=== PATIENT | male | born 1970 | race Caucasian/White ===

== ENCOUNTER 2024-01-30 08:25 | Outpatient (CLI) | payer OTHER, SELFPAY | END 2024-01-30 08:26 | disposition home or self-care (01) | LOC: ANHGOSHLAB 08:27 | PROVIDERS: PCP Nurse Practitioner Family; Visit Provider Nurse Practitioner Family | DX: Z00.00 Encounter for general adult medical examination without abnormal findings (principal); E03.9 Hypothyroidism, unspecified | CPT/HCPCS: 36415; 84443 ==

== ENCOUNTER 2024-02-09 16:04 | Outpatient (CLI) | payer OTHER, SELFPAY ==
[2024-02-09 17:07] LABS: Alanine Aminotransferase 63 U/L (6-50); Albumin Level 4.2 g/dL (3.5-5.1); Alkaline Phosphatase 72 U/L (38-126); Anion Gap 3 mmol/L (8-16); Aspartate Amino Transferase 31 U/L (17-59); Bilirubin,Total 0.7 mg/dL (0.2-1.3); Blood Urea Nitrogen 15 mg/dL (9-20); Calcium 9.5 mg/dL (8.4-10.2); Carbon Dioxide 32 mmol/L (22-30); Chloride 102 mmol/L (98-107); Cholesterol 199 mg/dL (0-200); Estimated Glomerular Filt Rate > 60; Glucose 111 mg/dL (65-110); HDL Direct 35 mg/dL; Potassium 4.6 mmol/L (3.4-5.0); Sodium 137 mmol/L (137-145); Triglycerides 202 mg/dL (<150)
[2024-02-09 17:18] LABS: LDL Cholesterol Direct 150 mg/dL
[2024-02-10 16:19] LABS: Hemoglobin A1C 7.8 % (<5.7)
[2024-02-12 07:31] LABS: Vitamin D 1,25 (OH)2 Total 22 pg/mL (18-72); Vitamin D2 1,25 (OH)2 <8 pg/mL; Vitamin D3 1,25 (OH)2 22 pg/mL
[2024-02-13 16:33] LABS: PSA, Total 0.8 ng/mL (<=4.0)
[2024-02-15 10:39] LABS: Testosterone Free 60.7 pg/mL (35.0-155.0); Testosterone Total 397 ng/dL (250-1100)
== END 2024-02-09 16:05 | disposition home or self-care (01) ==
LOC: ANHGOSHLAB 16:05
PROVIDERS: PCP Family Medicine; Visit Provider Nurse Practitioner Family
DX: Z12.5 Encounter for screening for malignant neoplasm of prostate (principal); R63.5 Abnormal weight gain; E11.9 Type 2 diabetes mellitus without complications; I10 Essential (primary) hypertension; E55.9 Vitamin D deficiency, unspecified; R79.89 Other specified abnormal findings of blood chemistry
CPT/HCPCS: 36415; 80053; 80061; 82652; 83036; 84153; 84154; 84402; 84403

== ENCOUNTER 2025-02-25 15:07 | Outpatient (CLI) | payer OTHER, SELFPAY ==
[2025-02-25 16:09] LABS: Alanine Aminotransferase 45 U/L (6-50); Albumin Level 4.1 g/dL (3.5-5.1); Alkaline Phosphatase 92 U/L (38-126); Anion Gap 4 mmol/L (4-12); Aspartate Amino Transferase 24 U/L (17-59); Bilirubin,Total 0.6 mg/dL (0.2-1.3); Blood Urea Nitrogen 14 mg/dL (9-20); Calcium 9.1 mg/dL (8.4-10.2); Carbon Dioxide 33 mmol/L (22-30); Chloride 100 mmol/L (98-107); Cholesterol 270 mg/dL (0-200); Estimated Glomerular Filt Rate > 60; Glucose 299 mg/dL (65-110); HDL Direct 40 mg/dL; Potassium 4.4 mmol/L (3.4-5.0); Sodium 137 mmol/L (137-145); Triglycerides 390 mg/dL (<150)
[2025-02-25 16:19] LABS: Free T4 Free Thyroxine 0.94 ng/dL (0.78-2.19); Vitamin D 25 Hydroxy 17.4 ng/mL
--- OUTSIDE RECORDS SUMMARY | 2025-02-25 16:33 | XMS_ITS | Encounter Summary ---
Author Organization [facility] Address [address] [place] [address] Phone Care Team Providers Care Supply Coordinator Name Role Phone Naila Pop APRN, KATERIN Primary Care Provider Provider, None Primary Care Provider Unavailabl e Reason for Visit * Reason Comments Medication Refill Encounter Details Date Type Department Care Team (Late st Contact Info) Description 12/30/2022 Refill [facility] - Primary Care - [place] [address] [place] [id number] Naila Pop APRN, PERIOPERATIVE TECH [address] [place] [address] Medication Refill Social History Tobacco Use Types Packs/Day Years Used Date Smoking Tobacco: Every Day Cigarettes 1.5 37 Started: 02/12/1988 Smokeless Tobacco: Never Alcohol Use Standard Drinks/Week Comments No 0 (1 standard drink = 0.6 oz pur e alcohol) no drinks for 1 year. PHQ-2 Answer Date Recorded Total Score - Questions 1-9 0 11/20 Sexually Active Control Partners Comments Not Currently Female Sex and Gender Information Value Date Recorded Sex Assigned at Not on file Legal Sex Male 8:05 PM CDT Gender Identity Not on file Sexual Orientation Not on file documented as of this encounter Miscellaneous Notes * Telephone Encounter - Dalia Villarreal RN - 12/30/2022 7:40 AM TURN SUPERVISOR Medication failed the protocol, provider to review and approve the medication order if appropriate. Requested Prescriptions Pending Prescriptions Disp Refills metFORMIN (GLUCOPHAGE) 1000 MG Tablet [Pharmacy Med Name: METFORMIN HCL 1,000 MG TABLET] 180 Tablet0 Sig: TAKE 1 TABLET BY MOUTH 2 TIMES DAILY WITH MEALS Biguanides Protocol Passed - 12/30/2022 12:02 AM Passed - Visit with relevant provider in past 6 months or upcoming 90 days Recent Visits Date Type Provider Dept 10/04/22 Office Visit Naila Pop APRN, PERIOPERATIVE TECH [facility] [place] [facility] Showing recent visits within past 182 days and meeting all other requirements Future Appointments No visits were found meeting these conditions. Showing future appointments within next 90 days and meeting all other requirements Passed - HgA1C on record in past 6 months HGB-A1C Date Value Ref Range Status 10/04/2022 11.2 (H) 4.0 - 6.0 % Final Passed - GFR on record in past 6 months GFR, EST. NONAFRICAN Date Value Ref Range Status 10/04/2022 >60 >=60 Final buPROPion (WELLBUTRIN) 150 MG XL tablet [Pharmacy Med Name: BUPROPION HCL XL 150 MG TABLET] 90 Tablet 0 Sig: TAKE 1 TABLET BY MOUTH EVERY DAY IN THE MORNING Bupropion (6 Month Refill Only) Protocol Failed - 12/30/2022 12:02 AM Failed - Patient has established therapy with Bupropion for at least 6 months Passed - Visit with relevant provider in past 6 months or upcoming 90 days Recent Visits Date Type Provider Dept 10/04/22 Office Visit Naila Pop APRN, KATERIN [facility] [place] [facility] Showing recent visits within past 182 days and meeting all other requirements Future Appointments No visits were found meeting these conditions. Showing future appointments within next 90 days and meeting all other requirements Passed - Has an encounter in the past 6 months with a depression or anxiety visit diagnosis SUPERVISOR documented in this encounter Plan of Treatment Not on file documented as of this encounter Visit Diagnoses Not on filedocumented in this encounter Additional Health Concerns Infection Onset Date Last Indicated Resolved Time COVID - 19 04/07/2023 04/07/2023 04/17/2023 12:1 6 AM CDT Assessment Noted Time PHQ-9 Depression Total Score: 0 08/24/20 18 9:00 AM CDT documented as of this encounter Care Teams Supply Coordinator Relationship Specialty Start Date End Date Naila Pop, AERIAL PHOTOGRAPH INTERPRETER, PERIOPERATIVE TECH [address] [place] [address] PCP - General Advanced Practice Nurse 08/24/18 Provider, None [place] PCP - General 05/10/24 documented as of this encounter
--- OUTSIDE RECORDS SUMMARY | 2025-02-25 16:33 | XMS_ITS | Clinical Summary ---
Author Organization [facility] Address [address] [place] [address] Phone Care Team Providers Care Vegetable Cutter Name Role Phone Provider, None Primary Care Provider Unavailabl e Allergies No known active allergies Medications Syringe/Needle, Disp, (SYRINGE 3CC/44AW1-5/4 ) 21G X 1-4 3 ML Misc 1 Units by Does not apply route every 14 days. 2 Each 1 2 Active Additional Information Patient not taking.Reported on 05/10/2024 glimepiride (AMARYL) 4 MG Tablet Take 1 Tablet by mouth every morning. 90 Tablet 3 2 Active Additional Information Patient not taking.Reported on 05/10/2024 metFORMIN (GLUCOPHAGE) 1000 MG Tablet TAKE 1 TABLET BY MOUTH 2 TIMES DAILY WITH MEALS 180 Tablet 3 3 Active Additional Information Patient not taking.Reported on 05/10/2024 buPROPion (WELLBUTRIN) 150 MG XL tablet TAKE 1 TABLET BY MOUTH EVERY DAY IN THE MORNING 90 Tablet 3 3 Active Additional Information Patient not taking.Reported on 05/10/2024 levothyroxine (SYNTHROID) 200 MCG Tablet Take 200 mcg by mouth daily. Active simvastatin (ZOCOR) 20 MG Tablet Take 20 mg by mouth every evening. Active Vitamin D3 1.25 MG (81669 UT) Capsule TAKE 1 CAPSULE BY MOUTH ONCE WEEKLY 4 Active Ozempic, 1 MG/DOSE, 4 MG/3ML Solution Pen-injector INJECT 1MG UNDER THE SKIN ONCE WEEKLY 4 Active ofloxacin (OCUFLOX) 0.3 % Solution Place 1 Drop in affected eye(s) 4 times daily. 5 mL 4 Active Active Problems Problem Noted Date Diagnosed Date Cellulitis of right lower extremity 04/07/2023 HTN (hypertension) 04/07/2023 Chronic obstructive pulmonar y disease with acute exacerbation 04/07/2023 Acute respiratory failure with hypoxia and hyper capnia 04/07/2023 Tobacco dependence syndrome 10/11/2021 Other testicular hypofunction 02/26/2020 Incisional hernia, without obstruction or gangre ne 02/12/2020 Class 3 severe obesity due t o excess calories with serious comorbidity and body mass index (BMI) of 45.0 to 49.9 in adult 09/17/2019 Thrush, oral 09/17/2019 Localized edema 09/03/2019 Type 2 diabetes mellitus wit hout complication, without long-term current use of insulin 08/29/2018 Hypothyroidism 08/29/2018 Elevated blood pressure reading 08/29/2018 Vitamin D deficiency 08/29/2018 Acute deep vein thrombosis ( DVT) of proximal vein of right lower extremity 08/29/2018 Mixed hyperlipidemia 08/29/2018 Immunizations Immunization Administration Dates Next Due Pneumococcal Vaccine Adult - 23 Valent 8 Family History Medical History Relation Name Comments No Known Problems Daughter 1 Diabetes Daughter 2 youngest Seizures Daughter 2 youngest Congestive Heart Failure Father Diabetes Father Heart Disease Father Hypertension Father Seizures Father Stroke Half-Brother 1 Diabetes Mother Neuropathy Mother Relation Name Status Comments Daughter 1 Alive Daughter 2 youngest Alive Father Half-Brother 1 Alive Half-Brother 2 Alive Mother Alive Social History Tobacco Use Types Packs/Day Years Used Date Smoking Tobacco: Every Day Cigarettes 1.5 37 Started: 02/12/1988 Smokeless Tobacco: Never Tobacco Cessation:Ready to Q uit: No; Counseling Given: No Alcohol Use Standard Drinks/Week Comments No 0 [...] on file Sexual Orientation Not on file Last Filed Vital Signs Vital Sign Reading Time Taken Comments Blood Pressure 132/80 05/10/2024 9:21 AM CDT Pulse 83 05/10/2024 9:21 AM CDT Temperature 36.5 C (97.7 F) 05/10/2024 9:21 AM CDT Respiratory Rate 16 04/08/2023 7:55 AM CDT Oxygen Saturation 95% 05/10/2024 9:21 AM CDT Inhaled Oxygen Concentration - - Weight 140.6 kg (310 lb) 05/10/2024 9:21 AM CDT Height 180.3 cm (5' 11 ) 04/07/2023 12:17 PM CDT Body Mass Index 43.24 04/07/2023 12:17 PM CDT Plan of Treatment Health Maintenance Due Date Last Done Comments Diabetes: Foot Exam 1972 Hepatitis C Virus (HCV) Screening 1972 TdaP Immunization 1972 Hepatitis B Immunization (1 of 3 - 19+ 3-dose series) 1991 Colonoscopy 2017 Colorectal Cancer Screening 2017 Pneumococcal Immunization (50+ years) (2 of 2 - PCV) 08/29/2019 08/29/2018 Diabetes: Eye Exam 09/27/2020 09/27/2019 Cologuard 2022 Immunochemical Fecal Occult Blood 2022 Lung Cancer Screening 2022 Zoster Immunization (1 of 2) 2022 Diabetes: Hemoglobin A1c 04/21/2024 023, 04/07/2023, 10/04/2022, Additional history exists Influenza Immunization (#1) 2024 SARS-COV-2 Immunization ( season) 2024 Diabetes: Nephropathy Screening 10/21/2024 10/21/2023, 10/21/2023, 04/07/2023, Additional history exists Respiratory Syncytial Virus (RSV) Immunization (Adult) (1 - 1-dose 75+ series) 2047 Pneumococcal Immunization Combined Discontinued 08/29/2018 Meningococcal Immunization (ACWY) Aged Out No longer eligible based on patient's age to complete this topic Rotavirus Immunization Aged Out No lo nger eligible based on patient's age to complete this topic Medical Devices Implanted Type Area Mattress Filler Device Identifier Shelf Expiration Date Model / Serial / Lot System Fix 5mm Sorbafix 30 Abs Fastener Loprfl Hollow Core Atraumatic Blunt Tip Hernia Repair Lf - [id number] Implanted:Qty: 1 on 12/03/2021 by [facility] at [facility] IMPLANT N/A: Umbilical [employer] 05/17/2023 [id number] / [id number] / [id number] M[address] Ventralight St Sepra Echo Ps 8x6in Mfl Ltwt Abs Loprfl Strl Seprafilm Polyp Hydrogel - [id number] Implanted:Qty: 1 on 12/03/2021 by Jonathan Sam[facility]oa MD at [facility] IMPLANT N/A: Umbilical [employer] 01/17/2023 [id number] / [id number] / [id number] Staple Tacker Optifix At - [id number] Implanted:Qty: 1 on 12/03/2021 by Jonathan Samayoa MD at [facility] IMPLANT N/A: [employer]mb[employer]ical [employer] 05/17/2023 [id number] / [id number] / [id number] Procedures Procedure Name Priority Date/Time Associated Diagnosis Comments CMP (COMPREHENSIVE METABOLIC PANEL) Routine 10/21/2023 8:15 AM DOUBLE END TENON OPERATOR Other specified abnormal findings of blood chemistry Essential (primary) hypertension Special screening for malignant neoplasm of prostate Type 2 diabetes mellitus without complication, unspecified whether [facility] insulin use (HCC) Hypothyroidism, unspecified type Vitamin D deficiency HEMOGLOBIN A1C W/ ESTIMATED GLUCOSE Routine 10/21/2023 8:15 AM DOUBLE END TENON OPERATOR Other specified abnormal findings of blood chemistry Essential (primary) hypertension Special screening for malignant neoplasm of prostate Type 2 diabetes mellitus without complication, unspecified whether rodent exterminator insulin use (HCC) Hypothyroidism, unspecified type Vitamin D deficiency HM DILATED EYE EXAM Routine 09/27/2019 from Last 3 Months or Most Recently Relevant to Health Maintenance Results * (ABNORMAL) HEMOGLOBIN A1C W/ ESTIMATED GLUCOSE (10/21/2023 8:15 AM DOUBLE END TENON OPERATOR) HGB-A1C 12.9(H) 4.0 - 6.0 % 10/21/2023 11:46 AM [facility] Est Average Glucose 323.5 mg/dL 10/21/2023 11:46 AM [facility] Blood Venipuncture / Unknown 10/21/2023 8:15 AM DOUBLE END TENON OPERATOR 10/21/2023 9:23 AM DOUBLE END TENON OPERATOR Narrative [facility] - 10/21/2023 11:46 AM DOUBLE END TENON OPERATOR HEMOGLOBIN A1C: DIABETIC PATIENTS: WELL-CONTROLLED: 6.2 - 7.0 INTERMEDIATE WELL-CONTROLLED: 7.0 - 9.0 POORLY-CONTROLLED: >9.0 Naila Pop APRN, CNP CHEMISTRY ORDERABLES Fi nal Result [facility] [address] [place] [address] * (ABNORMAL) CMP (COMPREHENSIVE METABOLIC PANEL) (10/21/2023 8:15 AM DOUBLE END TENON OPERATOR) SODIUM 140 136 - 145 mmol/L 10/21/2023 10:48 AM [facility] POTASSIUM 4.5 3.5 - 5.1 mmol/L 10/21/2023 10:48 AM [facility] CHLORIDE 98 98 - 107 mmol/L 10/21/2023 10:48 AM [facility] CO2, VENOUS 30 22 - 30 mmol/L 10/21/2023 10:48 AM [facility] ANION GAP 16.5 <18.0 mmol/L 10/21/2023 10:48 AM [facility] GLUCOSE 372(H) 70 - 99 mg/dL 10/21/2023 10:48 AM [facility] BUN 14 8 - 26 mg/dL 10/21/2023 10:48 AM [facility] CREATININE, BLOOD 1.01 0.70 - 1.30 mg/dL 10/21/2023 10:48 AM [facility] BUN/CREATININE RATIO 14 12 - 20 ratio 10/21/2023 10:48 AM [facility] TOTAL PROTEIN 7.3 6.3 - 8.2 g/dL 10/21/2023 10:48 AM [facility] ALBUMIN 3.8 3.5 - 5.0 g/dL 10/21/2023 10:48 AM [facility] A/G RATIO 1.1 1.0 - 2.2 10/21/2023 10:48 AM [facility] CALCIUM 9.3 8.7 - 10.5 mg/dL 10/21/2023 10:48 AM [facility] T BILI 0.5 0.2 - 1.2 mg/dL 10/21/2023 10:48 AM [facility] SGOT (AST) 23 5 - 34 U/L 10/21/2023 10:48 AM [facility] SGPT (ALT) 44 0 - 55 U/L 10/21/2023 10:48 AM [facility] ALKALINE PHOSPHATASE 84 40 - 150 U/L 10/21/2023 10:48 AM [facility] IS THE PATIENT REQUIRED TO BE FASTING? No 10/21/2023 10:48 AM [facility] GFR, ESTIMATED >60 >=60 10/21/2023 10:48 AM [facility] Comment: Creatinine Clearance is the preferred criteria for selecting drug dose adjustments in renally impaired patients. The GFR is provided as additional pertinent clinical information. GFR is reported in mL/min/1.73 sq m. Calculation based on the Chronic Kidney Disease Epidemiology Collaboration (CKD- EPI) equation refit without adjustment for race. GFR, EST. >60 >=60 023 10:48 AM [facility] GFR, EST. NONAFRICAN >60 >=60 10/21/2023 10:48 AM [facility] Blood Venipuncture / Unknown 10/21/2023 8:15 AM DOUBLE END TENON OPERATOR 10/21/2023 9:23 AM DOUBLE END TENON OPERATOR us Naila Pop DOCUMENT CONTROL SPECIALIST, INSTRUCTOR DRAMATIC ARTS CHEMISTRY ORDERABLES Fi nal Result [facility] [address] [place] [address] * HM DILATED EYE EXAM (09/27/2019) us Prasanth Mccormack MD PROCEDURE/MINOR SURGICAL ORDERABLES Final Result from Last 3 Months or Most Recently Relevant to Health Maintenance Insurance [facility] Advance Directives * Full Code (Latest Code Status on File) Date Activated Date Inactivated Comments 04/07/2023 3:47 PM 04/08/2023 11:59 AM CPR-Full Tr eatment: FULL ARREST: Attempt Resuscitation/CPR wit intubation and mechanical ventilation. PRE-ARREST: Use entire range of life support measures to stabilize the patient. * Full Code Date Activated Date Inactivated Comments 12/03/2021 5:12 PM 12/04/2021 9:59 AM CPR-Full Serafin atment: FULL ARREST: Attempt Resuscitation/CPR wit intubation and mechanical ventilation. PRE-ARREST: Use entire range of life support measures to stabilize the patient. Care Teams Vegetable Cutter Relationship Specialty Start Date End Date Provider, None [place] PCP - General 05/10/24
--- OUTSIDE RECORDS SUMMARY | 2025-02-25 16:33 | XMS_ITS | Encounter Summary ---
Author Organization [facility] Address [address] [place] [address] Phone Care Team Providers Care Dye Machine Tender Name Role Phone Naila Pop APRN, KATERIN Primary Care Provider Provider, None Primary Care Provider Unavailabl e Reason for Visit * Reason Comments Medication Refill Encounter Details Date Type Department Care Team (Late st Contact Info) Description 01/05/2022 Refill [facility] - Primary Care - [place] [address] [place] [id number] Naila Pop APRN, MIDDLE SCHOOL READING TEACHER [address] [place] [address] Medication Refill Social History Tobacco [...] on file Sexual Orientation Not on file COVID-19 Exposure Response Date Recorded In the last month, have you been in contact with someone who was confirmed or suspected to have Coronavirus / COVID-19? No / Unsure 12/15/2021 8:08 AM SENIOR DESIGNER documented as of this encounter Plan of Treatment Not on file documented as of this encounter Visit Diagnoses Not on filedocumented in this encounter Additional Health Concerns Infection Onset Date Last Indicated Resolved Time COVID - 19 04/07/2023 04/07/2023 04/17/2023 12:1 6 AM CDT Assessment Noted Time PHQ-9 Depression Total Score: 0 08/24/20 9:00 AM CDT documented as of this encounter Care Teams Dye Machine Tender Relationship Specialty Start Date End Date Naila Pop, SUEDING MACHINE OPERATOR, MIDDLE SCHOOL READING TEACHER [address] [place] [address] PCP - General Advanced Practice Nurse 08/24/18 Provider, None [place] PCP - General 05/10/24 documented as of this encounter
[2025-02-25 16:42] LABS: Prostate Specific Antigen 1.1 ng/mL (< OR = 4.0)
[2025-02-25 17:12] LABS: LDL Cholesterol Direct 177 mg/dL
[2025-02-25 17:13] LABS: Basophils Absolute Auto 0.1 K/mm3 (0.0-0.1); Basophils Percent Auto 1.2 % (0.2-1.2); Eosinophils Absolute Auto 0.2 K/mm3 (0-0.3); Eosinophils Percent Auto 2.2 % (0-4.4); Hematocrit 61.8 % (42.0-52.0); Hemoglobin 19.8 g/dL (14.0-18.0); Immature Granulocyte Absolute 0.02 K/mm3 (0.00-0.031); Immature Granulocyte Percent A 0.3 % (0-0.5); Lymphocytes Absolute Auto 2.48 K/mm3 (0.9-3.2); Lymphocytes Percent Auto 34.1 % (18.3-44.2); Mean Corpuscular Hemoglobin 29.5 pg (26-34); Mean Corpuscular Volume 92.1 fl (80-100); Mean Platelet Volume 12.5 fl (7.4-10.4); Monocytes Absolute Auto 0.7 K/mm3 (0.1-0.6); Monocytes Percent Auto 9.6 % (2.6-8.5); Neutrophils Absolute Auto 3.8 K/mm3 (1.3-6.7); Neutrophils Percent Auto 52.6 % (45.5-73.1); Platelet Count Result 151 k/mm3 (150-375); Red Blood Count 6.71 M/mm3 (4.6-6.20); Red Cell Distribution Width 14.5 % (11.5-14.5); White Blood Count 7.3 K/mm3 (4.5-10.0)
[2025-02-25 18:12] LABS: Hemoglobin A1C 13.3 % (<5.7)
[2025-02-25 19:51] LABS: Creatinine Urine 102.3 mg/dL
[2025-02-25 21:16] LABS: MALB Creatinine Ratio > 1114.4 mg/g (0-30); Microalbumin Urine Random > 1140.0 mg/L (0-16.7)
== END 2025-02-25 15:08 | disposition home or self-care (01) ==
LOC: ANHGOSHLAB 15:08
PROVIDERS: PCP Family Medicine; Visit Provider Nurse Practitioner Family
DX: Z12.5 Encounter for screening for malignant neoplasm of prostate (principal); E55.9 Vitamin D deficiency, unspecified; E03.9 Hypothyroidism, unspecified; E11.9 Type 2 diabetes mellitus without complications; E78.5 Hyperlipidemia, unspecified
CPT/HCPCS: 36415; 80053; 80061; 82043; 82306; 83036; 84153; 84439; 84443; 85025; G0103

== ENCOUNTER 2025-05-21 15:03 | Outpatient (CLI) | payer OTHER, SELFPAY ==
--- OUTSIDE RECORDS SUMMARY | 2025-05-21 15:06 | XMS_ITS | Clinical Summary ---
Author Organization [facility] Address [address] [place] [address] Phone Care Team Providers Care Director Product Development Name Role Phone Provider, None Primary Care Provider Unavailabl e Allergies No known active allergies Medications Syringe/Needle, Disp, (SYRINGE 3CC/60IX6-7/4) 21G X 1-4 3 ML Misc 1 [...] every evening. Active Vitamin D3 1.25 MG (83536 UT) Capsule TAKE 1 CAPSULE BY MOUTH [...] Date Smoking Tobacco: Every Day Cigarettes 1.5 37.3 Started: 02/12/1988 Smokeless Tobacco: Never Tobacco Cessation:Ready [...] 9:21 AM CDT Height 180.3 cm (5' 11) 04/07/2023 12:17 PM CDT Body Mass Index 43.24 04/07/2023 12:17 PM CDT Plan of Treatment Health Maintenance Due Date Last Done Comments Diabetes: Foot Exam 1972 Hepatitis C Virus (HCV) Screening 1972 TdaP Immunization 1972 Hepatitis B Immunization (1 of 3 - 19+ 3-dose series) 1991 Cologuard 2017 Colonoscopy 2017 Colorectal Cancer Screening 2017 Immunochemical Fecal Occult Blood 2017 Pneumococcal Immunization (50+ years) (2 of 2 - PCV) 08/29/2019 08/29/2018 Diabetes: Eye Exam 09/27/2020 09/27/2019 Lung Cancer Screening 2022 Zoster Immunization (1 of 2) 2022 Diabetes: Hemoglobin A1c 04/21/2024 023, 04/07/2023, 10/04/2022, Additional history exists SARS-COV-2 Immunization ( season) 2024 Diabetes: Nephropathy Screening 10/21/2024 10/21/2023, 10/21/2023, 04/07/2023, Additional history exists Influenza Immunization (Season Ended) 2025 Respiratory Syncytial Virus (RSV) Immunization (Adult) (1 - 1-dose 75+ series) 2047 Pneumococcal Immunization Combined Discontinued 08/29/2018 Human Papillomavirus (HPV) Immunization Aged Out No longer eligible based on patient's age to complete this topic Meningococcal Immunization (ACWY) Aged Out No longer eligible based on patient's age to complete this topic Rotavirus Immunization Aged Out No lo nger eligible based on patient's age to complete this topic Medical Devices Implanted Type Area Pipeline Operator Device Identifier Shelf Expiration Date Model / Serial / Lot System Fix 5mm Sorbafix 30 Abs Fastener Loprfl Hollow Core Atraumatic Blunt Tip Hernia Repair Lf - [id number] Implanted:Qty: 1 on 12/03/2021 by Jonathan Samayoa MD at [facility] IMPLANT N/A: Umbilical [employer] 05/17/2023 [id number] / [id number] / [id number] Vent[address]ight St Sepra Echo Ps 8x6in Mfl Ltwt Abs Loprfl Strl Seprafilm Polyp Hydrogel - [id number] Implanted:Qty: 1 on 12/03/2021 by Jonathan Samayoa MD at [facility] IMPLANT N/A: U[employer]ical [employer] 01/17/2023 [id number] / [id number] / [id number] Staple Tacker Optifix At - [id number] Implanted:Qty: 1 on 12/03/2021 by Jonathan Samayoa MD at [facility] IMPLANT N/A: Umb[employer]ical [employer] 05/17/2023 [id number] / [id number] / [id number] Procedures Procedure Name Priority Date/Time Associated Diagnosis Comments CMP (COMPREHENSIVE METABOLIC PANEL) Routine 10/21/2023 8:15 AM HUNTING AND FISHING GUIDE Other specified abnormal findings of blood chemistry Essential (primary) hypertension Special screening for malignant neoplasm of prostate Type 2 diabetes mellitus without complication, unspecified whether ocean transportation intermediary insulin use (HCC) Hypothyroidism, unspecified type Vitamin D deficiency HEMOGLOBIN A1C W/ ESTIMATED GLUCOSE Routine 10/21/2023 8:15 AM HUNTING AND FISHING GUIDE Other specified abnormal findings of blood chemistry Essential (primary) hypertension Special screening for malignant neoplasm of prostate Type 2 diabetes mellitus without complication, unspecified whether ocean transportation intermediary insulin use (HCC) Hypothyroidism, unspecified type Vitamin D deficiency HM DILATED EYE EXAM Routine 09/27/2019 from Last 3 Months or Most Recently Relevant to Health Maintenance Results * (ABNORMAL) HEMOGLOBIN A1C W/ ESTIMATED GLUCOSE (10/21/2023 8:15 AM HUNTING AND FISHING GUIDE) Pathologist [facility] HGB-A1C 12.9(H) 4.0 - 6.0 % 10/21/2023 11:46 AM [facility] Est Average Glucose 323.5 mg/dL 10/21/2023 11:46 AM [facility] Blood Venipuncture / Unknown 10/21/2023 8:15 AM HUNTING AND FISHING GUIDE 10/21/2023 9:23 AM HUNTING AND FISHING GUIDE Narrative [facility] - 10/21/2023 11:46 AM HUNTING AND FISHING GUIDE HEMOGLOBIN A1C: DIABETIC PATIENTS: WELL-CONTROLLED: 6.2 - 7.0 INTERMEDIATE WELL-CONTROLLED: 7.0 - 9.0 POORLY-CONTROLLED: >9.0 Naila Pop APRN, CNP CHEMISTRY ORDERABLES Fi nal Result [facility] [address] [place] [address] * (ABNORMAL) CMP (COMPREHENSIVE METABOLIC PANEL) (10/21/2023 8:15 AM HUNTING AND FISHING GUIDE) [facility] SODIUM 140 136 - 145 mmol/L 10/21/2023 10:48 AM [facility] POTASSIUM 4.5 3.5 - 5.1 mmol/L 10/21/2023 10:48 AM [facility] CHLORIDE 98 98 - 107 mmol/L 10/21/2023 10:48 AM [facility] CO2, VENOUS 30 22 - 30 mmol/L 10/21/2023 10:48 AM [facility] ANION GAP 16.5 <18.0 mmol/L 10/21/2023 10:48 AM [facility] GLUCOSE 372(H) 70 - 99 mg/dL 10/21/2023 10:48 AM [facility] BUN 14 8 - 26 mg/dL 10/21/2023 10:48 AM [facility] CREATININE, BLOOD 1.01 0.70 - 1.30 mg/dL 10/21/2023 10:48 AM [facility] BUN/CREATININE RATIO 14 12 - 20 ratio 10/21/2023 10:48 AM [facility] TOTAL PROTEIN 7.3 6.3 - 8.2 g/dL 10/21/2023 10:48 AM [facility] ALBUMIN 3.8 3.5 - 5.0 g/dL 10/21/2023 10:48 AM [facility] A/G RATIO 1.1 1.0 - 2.2 10/21/2023 10:48 AM [facility] CALCIUM 9.3 8.7 - 10.5 mg/dL 10/21/2023 10:48 AM [facility] T BILI 0.5 0.2 - 1.2 mg/dL 10/21/2023 10:48 AM [facility] SGOT (AST) 23 5 - 34 U/L 10/21/2023 10:48 AM [facility] SGPT (ALT) 44 0 - 55 U/L 10/21/2023 10:48 AM [facility] ALKALINE PHOSPHATASE 84 40 - 150 U/L 10/21/2023 10:48 AM [facility] IS THE PATIENT REQUIRED TO BE FASTING? No 10/21/2023 10:48 AM [facility] GFR, ESTIMATED >60 >=60 10/21/2023 10:48 AM [facility] Comment: Creatinine Clearance is the preferred criteria for selecting drug dose adjustments in renally impaired patients. The GFR is provided as additional pertinent clinical information. GFR is reported in mL/min/1.73 sq m. Calculation based on the Chronic Kidney Disease Epidemiology Collaboration (CKD- EPI) equation refit without adjustment for race. GFR, EST. >60 >=60 023 10:48 AM [facility] GFR, EST. NONAFRICAN >60 >=60 10/21/2023 10:48 AM [facility] Blood Venipuncture / Unknown 10/21/2023 8:15 AM HUNTING AND FISHING GUIDE 10/21/2023 9:23 AM HUNTING AND FISHING GUIDE us Naila Pop APRN, KATERIN CHEMISTRY ORDERABLES Fi nal Result [email or web address] [address] [place] [address] * DILATED EYE EXAM (09/27/2019) us Prasanth Mccormack MD PROCEDURE/MINOR SURGICAL ORDERABLES Final Result from Last 3 Months or Most Recently Relevant to Health Maintenance Insurance [facility] Advance Directives * Full Code (Latest Code [...] measures to stabilize the patient. Care Teams Director Product Development Relationship Specialty Start Date End Date Provider, None [place] PCP - General 05/10/24
--- OUTSIDE RECORDS SUMMARY | 2025-05-21 15:06 | XMS_ITS | Encounter Summary ---
Author Organization [facility] Address [address] [place] [address] Phone Care Team Providers Care Medical Device Name Role Phone Naila Pop APRN, KATERIN Primary Care Provider Provider, None Primary Care Provider Unavailabl e Reason for Visit * Reason Comments Medication Refill Encounter Details Date Type Department Care Team (Late st Contact Info) Description 12/30/2022 Refill [facility] - Primary Care - [place] [address] [place] [phone] Naila Pop APRN, ORTHOPEDIC RN [address] [place] [address] Medication Refill Social History Tobacco Use Types Packs/Day Years Used Date Smoking Tobacco: Every Day Cigarettes 1.5 37.3 Started: 02/12/1988 Smokeless Tobacco: Never Alcohol Use [...] Dalia Villarreal RN - 12/30/2022 7:40 AM 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 documented in this encounter Plan of Treatment Not on file documented as of this encounter Visit Diagnoses Not on filedocumented in this encounter Additional Health Concerns Infection Onset Date Last Indicated Resolved Time COVID - 19 04/07/2023 04/07/2023 04/17/2023 12:1 6 AM CDT Assessment Noted Time PHQ-9 Depression Total Score: 0 08/24/20 18 9:00 AM CDT documented as of this encounter Care Teams Medical Device Relationship Specialty Start Date End Date Naila Pop, HEAD MIXER, ORTHOPEDIC RN [address] [place] [address] PCP - General Advanced Practice Nurse 08/24/18 Provider, None [place] PCP - General 05/10/24 documented as of this encounter
--- OUTSIDE RECORDS SUMMARY | 2025-05-21 15:06 | XMS_ITS | Encounter Summary ---
Author Organization [facility] Address [address] [place] [address] Phone Care Team Providers Care Agriculture Instructor Name Role Phone Naila Pop APRN, KATERIN Primary Care Provider Provider, None Primary Care Provider Unavailabl e Reason for Visit * Reason Comments Medication Refill Encounter Details Date Type Department Care Team (Late st Contact Info) Description 01/05/2022 Refill [facility] - Primary Care - [place] [address] [place] [phone] Naila Pop APRN, FISHING MANAGER [address] [place] [address] Medication Refill Social History Tobacco [...] COVID-19? 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 G documented as of this encounter Plan of Treatment Not on file documented as of this encounter Visit Diagnoses Not on filedocumented in this encounter Additional Health Concerns Infection Onset Date Last Indicated Resolved Time COVID - 19 04/07/2023 04/07/2023 04/17/2023 12:1 6 AM CDT Assessment Noted Time PHQ-9 Depression Total Score: 0 08/24/20 9:00 AM CDT documented as of this encounter Care Teams Agriculture Instructor Relationship Specialty Start Date End Date Naila Pop, AIRCRAFT ENGINE MECHANIC OVERHAUL, FISHING MANAGER [address] [place] [address] PCP - General Advanced Practice Nurse 08/24/18 Provider, None [place] PCP - General 05/10/24 documented as of this encounter
[2025-05-21 18:58] LABS: Hemoglobin A1C. 7.9 % (<5.7)
[2025-05-21 18:59] LABS: Alanine Aminotransferase 52 U/L (6-50); Albumin Level 4.3 g/dL (3.5-5.1); Alkaline Phosphatase 60 U/L (38-126); Anion Gap 7 mmol/L (4-12); Aspartate Amino Transferase 58 U/L (17-59); Bilirubin,Total 0.4 mg/dL (0.2-1.3); Blood Urea Nitrogen 15 mg/dL (9-20); Calcium 9.6 mg/dL (8.4-10.2); Carbon Dioxide 30 mmol/L (22-30); Chloride 104 mmol/L (98-107); Cholesterol 190 mg/dL (0-200); Estimated Glomerular Filt Rate > 60; Glucose 77 mg/dL (65-110); HDL Direct 32 mg/dL; Potassium 4.2 mmol/L (3.4-5.0); Sodium 141 mmol/L (137-145); Total Protein 7.8 g/dL (6.3-8.2); Triglycerides 209 mg/dL (<150)
[2025-05-21 19:18] LABS: Free T4 Free Thyroxine. 1.18 ng/dL (0.78-2.19)
[2025-05-21 19:35] LABS: Thyroid Stimulating Hormone 5.370 uIU/mL (0.465-4.680)
== END 2025-05-21 15:04 | disposition home or self-care (01) ==
LOC: ANHGOSHLAB 15:04
PROVIDERS: PCP Family Medicine; Visit Provider Family Medicine
DX: E03.9 Hypothyroidism, unspecified (principal); I10 Essential (primary) hypertension; E11.9 Type 2 diabetes mellitus without complications; E78.5 Hyperlipidemia, unspecified
CPT/HCPCS: 36415; 80053; 80061; 83036; 84439; 84443